=== PATIENT | female | born 1960 ===

== ENCOUNTER 2021-09-08 16:36 | Emergency (ER) | payer OTHER ==
[~2021-09-08] VITALS: Ht 167.6 cm; Wt 79.4 kg
[2021-09-08] MEDS ORDERED: NYQUIL (17:13)
[2021-09-08] MEDS ORDERED: DAYQUIL (17:13)
[2021-09-08] MEDS ORDERED: ASPI81TA31 PO (17:13)
[2021-09-08] MEDS ORDERED: CEFTRIAXONE 1 G in IV DEXTROSE 5% 50 ML IV ONE (17:15)
[2021-09-08] MEDS ORDERED: IV NORMAL SALINE 1000 ML BAG IV ONE (17:15)
[2021-09-08] MEDS ORDERED: ONDANSETRON 4 MG/2 ML VIAL IV ONE (17:15)
[2021-09-08] MEDS ORDERED: ACETAMINOPHEN 325 MG TABLET PO ONE (17:15)
[2021-09-08] MEDS ORDERED: CEFTRIAXONE /D5W 50ML IVPB **ER PYXIS IV ONE (17:16)
[2021-09-08] MEDS ORDERED: ACETAMINOPHEN 325 MG TABLET ONE (17:16)
[2021-09-08] MEDS ORDERED: ONDANSETRON 4 MG/2 ML VIAL ONE (17:16)
[2021-09-08] MEDS ORDERED: MORPHINE SULFATE 2 MG/1 ML DISP.SYRIN IV ONE (17:30)
[2021-09-08 17:35] LABS: HEMATOCRIT 30.3 % (31.2-41.9); MEAN CORPUSCULAR HEMOGLOBIN 31.4 uug (24.7-32.8); MEAN CORPUSCULAR VOLUME 91.3 fL (75.5-95.3); PLATELET COUNT (AUTO) 208 K/uL (179-408)
[2021-09-08] MEDS ORDERED: MORPHINE SULFATE 2 MG/1 ML DISP.SYRIN ONE (17:43)
[2021-09-08 17:44] LABS: CREATININE 0.8 mg/dL (0.6-1.3); POTASSIUM 3.5 mmol/L (3.5-5.1)
[2021-09-08 17:50] LABS: BILIRUBIN,DIRECT 0.2 mg/dL (0.0-0.2); BILIRUBIN,TOTAL 0.3 mg/dL (0.2-1.0); TOTAL PROTEIN, SERUM 6.8 g/dL (6.4-8.2)
[2021-09-08 18:22] LABS: *BILIRUBIN,URIN NEGATIVE (NEGATIVE); *BLOOD, URINE 2+ (NEGATIVE); *CLARITY,URINE CLEAR (CLEAR); *COLOR,URINE YELLOW (YELLOW); *KETONES,URINE NEGATIVE (NEGATIVE); LEUKOCYTE ESTERASE ,URINE 1+ (NEGATIVE); NITRITE, URINE POSITIVE (NEGATIVE); UGLUCOSE NEGATIVE (NEGATIVE)
[2021-09-08] MEDS ORDERED: CEPH500C2 PO (18:29)
[2021-09-08] MEDS ORDERED: ACET-2154 PO (18:29)
--- NOTE | 2021-09-08 18:35 | NUR ---
Patient discharged to home in stable condition. Written and verbal after care instructions given. Patient verbalizes understanding of instructions. Stressed follow up or return to ER for worsening s/s.PT ACCOMPANIED BY DAUGHTER WHO PROVIDED THE TRANSLATION.
[2021-09-08 18:37] VITALS: BP 151/79
[2021-09-08 18:47] LABS: BACTERIA,URINE MANY /HPF (NONE SEEN); SQUAMOUS EPITHELIAL CELL,UR FEW /HPF (NONE SEEN); WBC,URINE 50-80 /HPF (0-3)
== END 2021-09-08 18:38 | disposition home or self-care (01) ==
LOC: ER 16:41
DX: N39.0 Urinary tract infection, site not specified (principal); R50.9 Fever, unspecified; I10 Essential (primary) hypertension; Z79.82 Long term (current) use of aspirin; Z79.899 Other long term (current) drug therapy; Z20.822 Contact with and (suspected) exposure to COVID-19
CPT/HCPCS: 36415; 71045; 80048; 80076; 81001; 83605; 83690; 84145; 84484; 85025; 85730; 87040 ×2; 87077 ×2; 87086; 87186 ×2; 87400; 87426; 93005; 96365; 96375; 99285; J0696; J2270; J2405; 70030-TC; A4663; J7030